=== PATIENT | female | born 1995 | race Caucasian/White ===

== ENCOUNTER 2024-04-15 09:48 | Inpatient (IN) ==
[2024-04-15] MEDS ORDERED: Lactated Ringers 1000 ml BAG 1,000 ML IV ONE (10:24)
[2024-04-15] MEDS ORDERED: Lidocaine 1% VIAL 10 MG/ML 30 ML VIAL INJ PRN (10:24)
[2024-04-15] MEDS: miSOPROStol 100 mcg TAB VAGINAL ONE (11:21)
[2024-04-15 11:49] LABS: Urine Benzodiazepine Screen None Detected (None Detect); Urine Cannabinoids Screen None Detected (None Detect); Urine Opiates Screen None Detected (None Detect)
[2024-04-15 11:59] LABS: Hematocrit 31.3 % (35-45); Hemoglobin 10.5 g/dL (11.5-14.3); Mean Corpuscular Hemoglobin 28.1 pg (27-33); Mean Corpuscular Hgb Conc 33.5 g/dL (31-36); Red Blood Count 3.73 10^6/uL (3.63-4.92)
[2024-04-15 12:29] LABS: ABS Lymphocytes 1.7 10^3/uL (1.0-4.8); ABS Monocytes 0.4 10^3/uL (0.0-0.9); ABS Neutrophils 4.9 10^3/uL (1.5-7.6); Eosinophil % 0.3 %; Large Platelets Present; Lymphocyte % 24.5 %; Mean Platelet Volume 11.4 fL (7.5-11.2); Platelet Count 160 10^3/uL (150-450)
[2024-04-15] MEDS: Oxytocin in LR 20,000 MILLI.UNIT/1,000 ML BAG IV SCH (16:30)
[2024-04-15] MEDS: Lactated Ringers 1000 ml BAG 1,000 ML IV SCH (16:30)
[2024-04-15] MEDS: Nalbuphine 10 MG/ML 1 ML VIAL IV ONE ×2 (17:07→22:33)
[2024-04-16] MEDS: Lactated Ringers 1000 ml BAG 1,000 ML IV ONE (03:25)
[2024-04-16] MEDS ORDERED: Sodium Citrate/Citric Acid LIQ 15 ML UDC PO PRN (03:54)
[2024-04-16] MEDS ORDERED: Phenylephrine 40 mcg/mL 10mL (400mcg) SYRINGE IV PUSH PRN ×2 (03:54)
[2024-04-16] MEDS: OBEPIDURAL (200 ML) 200 ML EPIDURAL SCH (04:20)
[2024-04-16] MEDS: Lactated Ringers 1000 ml BAG 1,000 ML IV SCH (04:20)
[2024-04-16 05:38] LABS: Urine Appearance Turbid; Urine Bilirubin Negative (Negative); Urine Blood 2+ (Negative); Urine Color Yellow; Urine Glucose Negative (Negative); Urine Ketones Trace (Negative); Urine Nitrite Negative (Negative); Urine Protein 1+ (>=30 mg/dL) (Negative); Urine Specific Gravity 1.028 (1.002-1.030); Urine Urobilinogen Negative (Negative); Urine pH 5.5 (5.0-8.0)
[2024-04-16 05:53] LABS: Urine Bacteria Absent /HPF (Absent); Urine Red Blood Cell 3+(>10/hpf) /HPF (0-Trace); Urine Squamous Epithelial Cell Present /HPF (Absent); Urine White Blood Cell Trace(0-5/hpf) /HPF (0-Trace)
[2024-04-16] MEDS: Phenylephrine 40 mcg/mL 10mL (400mcg) SYRINGE ONE (06:07)
[2024-04-16] MEDS: OBEPIDURAL (200 ML) 200 ML EPIDURAL ONE (06:09)
[2024-04-16] MEDS: Lidocaine 1.5% EPI 1:200,000 30 ML SDV ONE (06:09)
[2024-04-16] MEDS ORDERED: Glycerin ADULT 2.4 gm SUPP PR PRN (15:49)
[2024-04-16] MEDS ORDERED: Witch Hazel PAD JAR TOPICAL PRN (15:49)
[2024-04-16] MEDS ORDERED: Dibucaine 1% OINT 28.35 GM TUBE PR PRN (15:49)
[2024-04-17 08:17] LABS: Hematocrit 28.3 % (35-45); Hemoglobin 9.3 g/dL (11.5-14.3); Mean Corpuscular Hemoglobin 27.9 pg (27-33); Mean Corpuscular Hgb Conc 32.9 g/dL (31-36); Mean Corpuscular Volume 84.8 fL (80-97); Red Blood Count 3.34 10^6/uL (3.63-4.92); Red Cell Distribution Width 14.3 % (12-17); White Blood Count 5.9 10^3/uL (3.8-11.8)
[2024-04-17 09:42] LABS: ABS Eosinophils 0.1 10^3/uL (0.0-0.5); ABS Lymphocytes 1.9 10^3/uL (1.0-4.8); ABS Monocytes 0.4 10^3/uL (0.0-0.9); ABS Neutrophils 3.5 10^3/uL (1.5-7.6); Large Platelets Present; Lymphocyte % 32.2 %; Mean Platelet Volume 11.7 fL (7.5-11.2); Platelet Count 121 10^3/uL (150-450)
[2024-04-17] MEDS: medroxyPROGESTERone ACETATE 150 MG/ML VIAL IM ONE (15:02)
[2024-04-18 08:20] VITALS: BP 109/63
== END 2024-04-18 13:02 | disposition home or self-care (01) | DRG 560 ==
LOC: MCHOBOUT 09:48 → MCHOB 10:27
PROVIDERS: ADMIT Midwife; ATTEND Midwife